=== PATIENT | female | born 1985 | race African-American/Black ===

== ENCOUNTER 2020-10-17 21:10 | Emergency (ER) | payer MEDICAID ==
[~2020-10-17] VITALS: Ht 162.6 cm; Wt 104.0 kg
[2020-10-18] MEDS ORDERED: KETOROLAC 60MG/2ML VIAL IM STA (01:43)
[2020-10-18] MEDS ORDERED: ACETAMINOPHEN WITH CODEINE 300/30MG TABLET PO STA (01:43)
[2020-10-18] MEDS ORDERED: NAPR-681 PO ×2 (02:12→02:35)
[2020-10-18] MEDS ORDERED: TRAM50TA3 PO (02:35)
[2020-10-18 02:52] VITALS: BP 136/86
== END 2020-10-18 02:53 | disposition home or self-care (01) ==
LOC: ER 21:10
DX: M54.31 Sciatica, right side (principal)
CPT/HCPCS: 96372; 99283; J1885